=== PATIENT | female | born 1960 | race Caucasian/White ===

== ENCOUNTER 2018-02-14 19:15 | Emergency (ER) | payer SELFPAY ==
[2018-02-14 19:37] VITALS: O2SAT 97
--- NOTE | 2018-02-14 21:15 | C.PDOC ---
Time Seen by Provider: 02/14/18 19:56 Chief Complaint (Nursing): Lower Extremity Problem/Injury Past Medical History Vital Signs: Last Vital Signs Temp 98.5 F 02/14/18 19:22 Pulse 97 H 02/14/18 19:22 Resp 18 02/14/18 19:22 BP 123/73 02/14/18 19:22 Pulse Ox 97 02/14/18 19:22 Surgical History: Cholecystectomy - Social History Hx Tobacco Use: No Hx Alcohol Use: No Hx Substance Use: No - Immunization History Hx Tetanus Toxoid Vaccination: No Hx Influenza Vaccination: No Hx Pneumococcal Vaccination: No ED Course And Treatment O2 Sat by Pulse Oximetry: 97 Medical Decision Making Medical Decision Making: knee pain with swelling and ecchymosis s/p fall one week ago; no fx noted n xray. continue Tylenol, cold compress, dari bandage. f/u ortho clinic at [facility], number given to patient. Disposition Counseled Patient/Family Regarding: Studies Performed, Diagnosis, Need For Followup, Rx Given - Disposition Referrals: [facility] [Outside] Disposition: HOME/ ROUTINE Disposition Time: 21:16 Condition: GOOD Additional Instructions: Por favor, use un vendaje roddy el da para ayudar con la hinchazn. Compresas fras 3-4 veces al da roddy 20 minutos hasta la rodilla derecha. Tylenol para el dolor. Llame a la clnica de robin de [facility] en [facility] [place] y allie edwina leny con el ortopedista. Please wear dari bandage in daytime to help with swelling. Cold compresses 3-4 times a day for 20 minutes to right knee. Tylenol for pain. Call [facility] clinic at [facility] [place] and make an appointment with the orthopedist. Prescriptions: Acetaminophen [Tylenol 325mg tab] 650 mg PO Q4 #50 tab Instructions: Internal Derangement of the Knee (DC) Forms: Gen Discharge Inst Romanian, [employer] (Romanian) - Clinical Impression Clinical Impression: Right knee injury, Effusion of knee joint right
--- NOTE | 2018-02-14 21:17 | C.PDOC ---
History Of Present Illness 57 y/o female presents to the ED complaining of persistent swelling and pain and ecchymosis to the right knee s/p trip and fall 1 week ago. Patient notes that she tripped, landing on the right knee. Now complains of worsening pain, swelling, and persistent ecchymosis to the knee. Patient is taking Tylenol for pain. She denies any blood thinner use or aspirin. Otherwise she denies any numbness or tingling. Time Seen by Provider: 02/14/18 19:56 Chief Complaint (Nursing): Lower Extremity Problem/Injury History Per: Patient History/Exam Limitations: no limitations Onset/Duration Of Symptoms: Days Current Symptoms Are (Timing): Still Present - Knee Description Of Injury: Fell Past Medical History Reviewed: Historical Data, Nursing Documentation, Vital Signs Vital Signs: Last Vital Signs Temp 98.5 F 02/14/18 19:22 Pulse 97 H 02/14/18 19:22 Resp 18 02/14/18 19:22 BP 123/73 02/14/18 19:22 Pulse Ox 97 02/14/18 19:22 - Medical History PMH: No Chronic Diseases Surgical History: Cholecystectomy Family History: States: No Known Family Hx - Social History Hx Tobacco Use: No Hx Alcohol Use: No Hx Substance Use: No - Immunization History Hx Tetanus Toxoid Vaccination: No Hx Influenza Vaccination: No Hx Pneumococcal Vaccination: No Review Of Systems Constitutional: Negative for: Fever, Chills Musculoskeletal: Positive for: Leg Pain (Right knee pain and swelling) Skin: Positive for: Bruising (to right knee) Neurological: Negative for: Weakness, Numbness, Incoordination Physical Exam - Physical Exam Appears: Well, Non-toxic, No Acute Distress Skin: Warm, Dry, Ecchymosis (extensive ecchymosis to the lateral right knee extending down lateral calf, with scattered ecchymoses down the anterior tibia) Head: Atraumatic, Normacephalic Eye(s): bilateral: PERRL, EOMI Chest: Symmetrical Cardiovascular: Rhythm Regular, No Murmur Respiratory: Normal Breath Sounds, No Accessory Muscle Use Extremity: Tenderness (Tender anteriorly and laterally to the right knee; No tenderness to tibia, foot, or ankle), Capillary Refill (less than 2 sec), Swelling (Right knee is markedly swollen with no erythema/warmth, (+) effusion to suprapatellar lateral aspect), Other (Decreased ROM of right knee secondary to swelling) Pulses: Left Dorsalis Pedis: Normal, Right Dorsalis Pedis: Normal Neurological/Psych: Oriented x3, Normal Motor, Normal Sensation ED Course And Treatment O2 Sat by Pulse Oximetry: 97 (RA) Pulse Ox Interpretation: Normal - Other Rad XR right knee X-Ray: Interpreted by Me, Viewed By Me Interpretation: (-) acute fracture or dislocation Medical Decision Making Medical Decision Making: Plan: -- X ray of right knee Progress: XR shows no acute fractures. Impression: Possible tear with hemarthrosis vs effusion. NEGRITO bandage applied. Patient instructed on ortho follow up for further evaluation. Disposition Counseled Patient/Family Regarding: Studies Performed, Diagnosis, Need For Followup - Disposition Referrals: at [facility] [Outside] Disposition: HOME/ ROUTINE Disposition Time: 21:16 Condition: GOOD Additional Instructions: Por favor, use un vendaje roddy el da para ayudar con la hinchazn. Compresas fras 3-4 veces al da roddy 20 minutos hasta la rodilla derecha. Tylenol para el dolor. Llame a la clnica de robin de [facility] en [facility] y allie edwina leny con el ortopedista. Please wear negrito bandage in daytime to help with swelling. Cold compresses 3-4 times a day for 20 minutes to right knee. Tylenol for pain. Call [facility] clinic at [facility] and make an appointment with the orthopedist. Prescriptions: Acetaminophen [Tylenol 325mg tab] 650 mg PO Q4 #50 tab Instructions: Internal Derangement of the Knee (DC) Forms: Gen Discharge Inst Libyan, [facility] (Libyan) Print Language: SLOVENIAN - POA Present On Arrival: Falls Or Trauma - Clinical Impression Clinical Impression: Right knee injury, Effusion of knee joint right - PA / ENTRY ANALYST / Resident Statement MD/DO has reviewed & agrees with the documentation as recorded. - Scribe Statement The provider has reviewed the documentation as recorded by the Scribe (Clau Woods) All medical record entries made by the Scribe were at my direction and personally dictated by me. I have reviewed the chart and agree that the record accurately reflects my personal performance of the history, physical exam, medical decision making, and the department course for this patient. I have also personally directed, reviewed, and agree with the discharge instructions and disposition.
[2018-02-14 21:18] VITALS: BP 126/68; PULSE 72; RESP 17; TEMP 98.1
--- NOTE | 2018-02-15 10:11 | RAD ---
Date of service: 02/14/2018 PROCEDURE: Right Knee Radiographs. HISTORY: s/p fall, swelling. effusion, brusing COMPARISON: None. FINDINGS: BONES: No acute fracture or destructive bony lesion identified. JOINTS: No dislocation or subluxation. Limited tricompartmental joint space narrowing is appreciate compatible with mild degenerative joint disease. JOINT EFFUSION: Small suprapatellar bursa effusion suggested. Prepatellar edema is identified in subcutaneous fat. Limited distal lateral thigh/knee subcutaneous soft tissue edema appreciated as well. OTHER FINDINGS: None. IMPRESSION: No acute fracture or dislocation right knee. Mild degenerative joint disease. Small suprapatellar bursa effusion. Limited superficial soft tissue edema anteriorly and laterally.
== END 2018-02-14 21:23 | disposition home or self-care (01) ==
LOC: C.ER 19:15
DX: M25.461 Effusion, right knee (principal); S89.91XA Unspecified injury of right lower leg, initial encounter; W01.0XXA Fall on same level from slipping, tripping and stumbling without subsequent striking against object, initial encounter